=== PATIENT | female | born 1950 ===

== ENCOUNTER 2020-11-15 15:09 | Inpatient (IN) | payer OTHER ==
[~2020-11-15] VITALS: Ht 160 cm; Wt 69.9 kg
[~2020-11-15 15:09] MED LIST: TENORMIN0.5 MG/ML
[2020-11-17] MEDS ORDERED: PHENTERMINE H37.5 M1 (15:54)
[2020-11-17] MEDS ORDERED: CLONAZEPAM1 MG (15:54)
[2020-11-23] MEDS ORDERED: CLOPIDOGREL BIS75 MG PO (15:06)
[2020-11-23] MEDS ORDERED: LOSARTAN-HCTZ1 EAC2 PO (15:06)
[2020-11-23] MEDS ORDERED: AMLODIPINE BESY10 MG PO (15:06)
[2020-11-23] MEDS ORDERED: LIPITOR40 MG PO (15:06)
== END 2020-11-23 18:30 | disposition home or self-care (01) | DRG 65 ==
LOC: ER 15:09 → MEDI 11-16 15:11 → SURH 11-16 15:11
PROVIDERS: ADMIT Internal Medicine; ATTEND Internal Medicine
PROC: B030ZZZ Magnetic Resonance Imaging (MRI) of Brain (ICD-10-PCS; principal; 2020-11-16)
PROC: B24BYZZ Ultrasonography of Heart with Aorta using Other Contrast (ICD-10-PCS; 2020-11-16)
PROC: B345ZZZ Ultrasonography of Bilateral Common Carotid Arteries (ICD-10-PCS; 2020-11-16)
PROC: B24BZZ4 Ultrasonography of Heart with Aorta, Transesophageal (ICD-10-PCS; 2020-11-21)
DX: I63.81 Other cerebral infarction due to occlusion or stenosis of small artery (principal); G81.94 Hemiplegia, unspecified affecting left nondominant side; I67.82 Cerebral ischemia; I11.9 Hypertensive heart disease without heart failure; G25.0 Essential tremor; Z20.822 Contact with and (suspected) exposure to COVID-19
CPT/HCPCS: 70544

== ENCOUNTER 2022-11-26 11:36 | Outpatient (CLI) | payer OTHER ==
[~2022-11-26 11:36] MED LIST changes: +AMLODIPINE BESY10 MG PO; +CLONAZEPAM1 MG; +CLOPIDOGREL BIS75 MG PO; +LIPITOR40 MG PO; +LOSARTAN-HCTZ1 EAC2 PO; +PHENTERMINE H37.5 M1
== END 2022-11-26 11:40 | disposition home or self-care (01) ==
LOC: SONOGRAMA 11:36
PROVIDERS: ATTEND Pathology Anatomic Pathology
DX: D34 Benign neoplasm of thyroid gland (principal); E04.9 Nontoxic goiter, unspecified; E06.3 Autoimmune thyroiditis; E04.2 Nontoxic multinodular goiter